=== PATIENT | male | born 1960 | race Caucasian/White ===

== ENCOUNTER 2021-02-07 15:16 | Inpatient (IN) ==
[2021-02-07] MEDS ORDERED: Morphine Sulfate 2 MG/ML SYRINGE IVP ONE (17:34)
[2021-02-07 18:22] LABS: Basophils # 0.1 K/mcL (0.0-0.2); Basophils % 0.6 %; Eosinophils # 0.3 K/mcL (0.0-0.6); Eosinophils % 2.5 %; Hematocrit 46.2 % (37.5-50.1); Hemoglobin 15.7 g/dL (12.9-16.9); Immature Granulocytes % 0.4 % (0-4); Lymphocytes # 3.6 K/mcL (0.6-4.6); Lymphocytes % 29.5 %; Mean Corpuscular Hemoglobin 34.7 pg (28.0-33.3); Mean Platelet Volume 10.7 fL (9.4-12.4); Monocytes # 0.9 K/mcL (0.0-1.3); Monocytes % 7.2 %; Neutrophils # 7.2 K/mcL (1.6-8.9); Platelet Count 234 K/mcL (140-400); Red Blood Count 4.53 M/mcL (4.19-5.50); Red Cell Distribution Width 13.4 % (11.5-14.5); Segmented Neutrophils % 59.8 %
[2021-02-07 18:33] LABS: Bilirubin,Urine Negative (Negative); Blood,Urine Small (Negative); Clarity,Urine Clear (Clear); Color,Urine Light-Yellow (Yellow); Glucose,Urine (UA) Normal (Normal); Ketones,Urine Negative (Negative); Leukocyte Esterase,Urine Negative (Negative); Mucus,Urine Few per lpf (None-Few); Nitrite,Urine Negative (Negative); PH,Urine 5.5 pH Units (5.0-8.0); Protein,Urine Negative (Neg-Trace); RBC,Urine 0-3 per hpf (0-3); Specific Gravity,Urine 1.022 (1.010-1.025); Urobilinogen,Urine Normal (Normal); WBC,Urine 0-3 per hpf (0-3)
[2021-02-07 18:41] LABS: BUN/Creatinine Ratio 18 (6-26); Blood Urea Nitrogen 16 mg/dL (8-23); Calcium 9.8 mg/dL (8.6-10.3); Carbon Dioxide 28 mEq/L (23-29); Chloride 103 mEq/L (98-107); Glucose 72 mg/dL (70-105); Osmolality,Calculated 286 (280-300); Potassium 3.9 mEq/L (3.5-5.1); Sodium 138 mEq/L (136-145); eGFR For African Americans > 60 (> 60); eGFR For Non-African Americans > 60 (> 60)
[2021-02-07] MEDS ORDERED: *HR* HYDROcodone/Acet 5/325 mg TABLET PO PRN (21:23)
[2021-02-07] MEDS ORDERED: Melatonin 3 MG TABLET PO PRN (21:23)
[2021-02-07] MEDS ORDERED: Naloxone 0.4 MG/ML INJ IVP PRN (21:23)
[2021-02-07] MEDS ORDERED: Acetaminophen 325 MG TABLET PO PRN (21:23)
[2021-02-07] MEDS ORDERED: Ondansetron 4 MG/2 ML VIAL IVP PRN (21:23)
[2021-02-07] MEDS: *HR* OxyCODONE Immed Rel 5 MG TABLET PO PRN (22:08)
[2021-02-07] MEDS ORDERED: lisinopriL 5 MG TABLET PO SCH (22:14)
[2021-02-07] MEDS: Furosemide 20 MG TABLET PO SCH (22:43)
[2021-02-07] MEDS: Ranolazine 500 MG TAB.ER.12H PO SCH (22:47)
[2021-02-07] MEDS: Nicotine 14 MG PATCH.TD24 TD SCH (23:32)
[2021-02-08] MEDS ORDERED: Albuterol 2.5 MG/3 ML NEBULIZER IH PRN
[2021-02-08] MEDS: *HR* OxyCODONE Immed Rel 5 MG TABLET PO PRN ×2 (06:04→19:59)
[2021-02-08 06:33] LABS: Basophils # 0.1 K/mcL (0.0-0.2); Basophils % 0.6 %; Eosinophils # 0.3 K/mcL (0.0-0.6); Eosinophils % 2.9 %; Hematocrit 42.7 % (37.5-50.1); Hemoglobin 14.5 g/dL (12.9-16.9); Immature Granulocytes % 0.3 % (0-4); Lymphocytes # 3.7 K/mcL (0.6-4.6); Lymphocytes % 31.6 %; Mean Corpuscular Hemoglobin 34.5 pg (28.0-33.3); Mean Corpuscular Volume 101.7 fL (83.0-100.0); Mean Platelet Volume 10.5 fL (9.4-12.4); Monocytes # 0.8 K/mcL (0.0-1.3); Monocytes % 7.1 %; Neutrophils # 6.7 K/mcL (1.6-8.9); Platelet Count 192 K/mcL (140-400); Red Cell Distribution Width 13.1 % (11.5-14.5); Segmented Neutrophils % 57.5 %; White Blood Count 11.7 K/mcL (4.3-11.1)
[2021-02-08 06:52] LABS: BUN/Creatinine Ratio 20 (6-26); Blood Urea Nitrogen 18 mg/dL (8-23); Carbon Dioxide 26 mEq/L (23-29); Chloride 106 mEq/L (98-107); Glucose 84 mg/dL (70-105); Osmolality,Calculated 289 (280-300); Sodium 139 mEq/L (136-145); eGFR For African Americans > 60 (> 60); eGFR For Non-African Americans > 60 (> 60)
[2021-02-08] MEDS ORDERED: Tiotropium 10 INH DOSE IH ONE (07:23)
[2021-02-08] MEDS: Tiotropium 10 INH DOSE IH SCH (07:37)
[2021-02-08] MEDS: Albuterol 2.5 MG/3 ML NEBULIZER IH PRN ×3 (07:37→22:51)
[2021-02-08] MEDS: Budesonide/Formoterol 160/4.5 1 PUFF INH IH SCH ×2 (07:38→22:51)
[2021-02-08] MEDS: Ranolazine 500 MG TAB.ER.12H PO SCH ×2 (08:54→19:52)
[2021-02-08] MEDS ORDERED: lisinopriL 5 MG TABLET PO SCH (14:36)
[2021-02-08] MEDS: Furosemide 20 MG TABLET PO SCH (17:37)
[2021-02-08] MEDS ORDERED: NON-FORMULARY MEDICATION 1 EACH EACH (Atorvastatin Calcium [Lipitor] 20 MG Tablet) PO SCH (21:00)
[2021-02-08] MEDS: Nicotine 14 MG PATCH.TD24 TD SCH (23:03)
[2021-02-09] MEDS: *HR* OxyCODONE Immed Rel 5 MG TABLET PO PRN ×2 (02:15→08:17)
[2021-02-09] MEDS: Tiotropium 10 INH DOSE IH SCH (07:23)
[2021-02-09] MEDS: Albuterol 2.5 MG/3 ML NEBULIZER IH PRN (07:41)
[2021-02-09] MEDS: Budesonide/Formoterol 160/4.5 1 PUFF INH IH SCH (07:41)
[2021-02-09] MEDS: Ranolazine 500 MG TAB.ER.12H PO SCH (08:18)
[2021-02-09 11:36] VITALS: BP 101/65
[2021-02-10] MEDS ORDERED: Bacitracin 50,000 UNIT, Polymyxin B Sulfate 500,000 UNIT, Sodium Chloride IRRigation 1,... IR ONE (13:30)
== END 2021-02-09 15:08 | disposition home or self-care (01) | DRG 552 ==
LOC: 3BNU 15:16 → EMEROOARM 15:16 → SUATTDRO 20:29 → 3BNU 21:14
PROVIDERS: ADMIT Internal Medicine; ATTEND Registered Nurse